=== PATIENT | female | born 1980 | race African-American/Black ===

== ENCOUNTER 2019-07-23 14:28 | Outpatient (CLI) | payer OTHER, SELFPAY ==
--- NOTE | ~2019-07-23 | XR_ITS ---
XR cervical spine 4-5V 07/23/2019 14:49 Indication: Neck pain Procedure: 4 view cervical spine Comparison: No prior studies for comparison. Findings: There is reversal of cervical lordosis, possibly due to muscle spasm or patient positioning . No prevertebral soft tissue abnormality. Vertebral body and disc heights are preserved. No fracture or traumatic malalignment. No evidence for listhesis. Impression: 1: No significant abnormality of the cervical spine. Reviewed, dictated and finalized at location A. Impression: 1: No significant abnormality of the cervical spine.
--- NOTE | ~2019-07-23 | XR_ITS ---
XR lumbar spine 2-3V 07/23/2019 14:49 Indication: Numbness. Back pain. Procedure: 3 views lumbar spine Comparison: No prior studies for comparison. Findings: Vertebral body heights are maintained. No significant disc narrowing. No evidence for spond ylolisthesis. Pedicles intact. Sacral foramen are symmetric. There are tubal ligation clips in the pe lvis. Impression: 1: No significant abnormality of the lumbar spine. Reviewed, dictated and finalized at location A. Impression: 1: No significant abnormality of the lumbar spine.
== END 2019-07-23 14:29 | disposition home or self-care (01) ==
PROVIDERS: PCP Internal Medicine Gastroenterology; Visit Provider Internal Medicine Gastroenterology
DX: R20.0 Anesthesia of skin (principal)
CPT/HCPCS: 72050; 72100

== ENCOUNTER 2020-08-13 07:46 | Emergency (ER) | payer OTHER, SELFPAY ==
[2020-08-13 07:57] VITALS: BP 122/85; PULSE 120; RESP 18; TEMP 37; O2SAT 99
[2020-08-13 08:43] LABS: Basophils Percent Auto 0.4 % (0.2-1.2); Eosinophils Absolute Auto 0.1 K/mm3 (0-0.3); Eosinophils Percent Auto 2.4 % (0-4.4); Hematocrit 47.2 % (37.0-47.0); Hemoglobin 15.1 g/dL (12.0-15.0); Immature Granulocyte Absolute 0.03 K/mm3 (0.00-0.031); Immature Granulocyte Percent A 0.5 % (0-0.5); Lymphocytes Absolute Auto 1.17 K/mm3 (0.9-3.2); Lymphocytes Percent Auto 21.2 % (18.3-44.2); Mean Corpuscular Hemoglobin 28.7 pg (26-34); Mean Corpuscular Volume 89.6 fl (80-100); Mean Platelet Volume 10.7 fl (7.4-10.4); Monocytes Absolute Auto 0.4 K/mm3 (0.1-0.6); Neutrophils Absolute Auto 3.7 K/mm3 (1.3-6.7); Neutrophils Percent Auto 67.5 % (45.5-73.1); Platelet Count Result 246 k/mm3 (150-375); Red Blood Count 5.27 M/mm3 (4.2-5.4); Red Cell Distribution Width 13.7 % (11.5-14.5); White Blood Count 5.5 K/mm3 (4.5-10.0)
[2020-08-13 08:50] LABS: Add Urine Microscopic? YES; Appearance Urine Cloudy (Clear); Bacteria Urine Trace /hpf; Bilirubin Urine Negative (Negative); Blood Urine 2+ (Negative); Color Urine Amber (Yellow); Glucose Urine UA Negative (Negative); Hyaline Casts Urine 50+ /lpf; Ketones Urine Trace mg/dL (Negative); Leukocyte Esterase Ur Negative LEU/UL (Negative); Mucus Urine Few /lpf; Nitrate Urine Negative (Negative); Protein Urine 2+ mg/dL (Negative); Specific Grav Ur 1.016 (1.001-1.035); Squamous Epithelial Cell Urine Many /hpf (Few); Urobilinogen Urine Negative mg/dL (<2.0); WBC Urine 21-30 /hpf
[2020-08-13 08:54] LABS: Alanine Aminotransferase 27 U/L (4-35); Albumin Level 4.6 g/dL (3.5-5.1); Alkaline Phosphatase 75 U/L (38-126); Anion Gap 13 mmol/L (8-16); Aspartate Amino Transferase 39 U/L (14-36); Bilirubin,Total 0.3 mg/dL (0.2-1.3); Blood Urea Nitrogen 11 mg/dL (7-17); Calcium 8.9 mg/dL (8.4-10.2); Carbon Dioxide 25 mmol/L (22-30); Chloride 99 mmol/L (98-107); Estimated CRCL calculation 59 ml/min; Estimated Glomerular Filt Rate 43; Glucose 119 mg/dL (65-105); Lipase 53 U/L (23-300); Potassium 3.6 mmol/L (3.4-5.0); Sodium 137 mmol/L (137-145)
--- NOTE | 2020-08-13 09:54 | ED.GENADULT ---
HPI - General Adult General Chief complaint: Recheck/Abnormal Lab/Rx Stated complaint: high BP, headache Time Seen by Provider: 08/13/20 07:49 Source: patient Mode of arrival: ambulatory Limitations: no limitations History of Present Illness HPI narrative: 40-year-old with a history of hypertension here with complaints of headache, fluctuating blood pressure and lower abdominal pain since early this morning. She denies any nausea or vomiting. She states that it is very tender to touch in the lower abdomen. No history of fever or chills. She states that she takes Norvasc usually 5 mg a day but for the past few days she has been taking 10 mg a day. Onset (ago): day(s) (2) Location: head Radiation: non-radiation Severity: moderate Quality: dull Pain Consistency: intermittent Relieving factors: none Exacerbating factors: none Associated symptoms: denies other symptoms Related Data Home Medications Medication Instructions Recorded Confirmed amlodipine 08/13/20 azelastine INTRANASAL 08/13/20 cyclobenzaprine mg 08/13/20 fluticasone propionate INTRANASAL 08/13/20 ibuprofen 08/13/20 loratadine mg 08/13/20 olopatadine spray INTRANASAL 08/13/20 Allergies Allergy/AdvReac Type Severity Reaction Status Date / Time No Known Allergies Allergy Verified 08/13/20 08:01 Review of Systems Review of Systems: All systems reviewed & are unremarkable except as noted in HPI and below Constitutional: Constitutional: Reports no additional constitutional complaints Eyes: Eyes: Reports no additional eye complaints ENT: Reports system reviewed and no additional complaints, except as documented Cardiovascular: Cardiovascular: Reports no additional cardiovascular complaints Respiratory: Respiratory: Reports no additional respiratory complaints Gastrointestinal: Gastrointestinal: Reports as per HPI Musculoskeletal: Musculoskeletal: Reports no additional musculoskeletal complaints Neurologic: Reports system reviewed and no additional complaints, except as documented Psychiatric: Psychiatric: Reports no additional psychiatric complaints [facility] Social History Social History Gender identity (if verbalized by the patient): Female Exam Narrative: Exam Narrative: GENERAL: Well-appearing, Morbidly obese , and in no acute distress. HEAD: Normocephalic, atraumatic. EYES: PERRLA and EOMI. ENT: Nares clear, no rhinorrhea or epistaxis. Mucous membranes moist. NECK: Supple. CHEST: Clear to auscultation. No respiratory distress. HEART: Regular rate and rhythm. No murmur heard. Normal peripheral pulses. ABDOMEN: Soft, tender in the lower abdomen, nondistended, normal active bowel sounds. EXTREMITIES: Normal range of motion. No edema. SKIN: Warm, dry, no rash. NEURO: No focal deficits. Alert and oriented x3. PSYCH: Normal mood and affect. Course Course Emergency Course: I discussed lab work with the patient. Her urine is positive for WBC, hyaline casts and protein discussed with Dr. Mendoza recommended to start oral antibiotic and will follow up in the office for possible nephropathy. Meanwhile advised to continue her home medication. Vital Signs Vital signs: Vital Signs Temperature 37.0 C 08/13/20 07:57 Pulse Rate 120 H 08/13/20 07:57 Respiratory Rate 18 08/13/20 07:57 Blood Pressure 122/85 08/13/20 07:57 Pulse Oximetry 99 08/13/20 07:57 Temperature 37.0 C 08/13/20 07:57 Pulse Rate 120 H 08/13/20 07:57 Respiratory Rate 18 08/13/20 07:57 Blood Pressure 122/85 08/13/20 07:57 Pulse Oximetry 99 08/13/20 07:57 Medical Decision Making Vital Signs Vital Signs: Vital Signs Temperature 37.0 C 08/13/20 07:57 Pulse Rate 120 H 08/13/20 07:57 Respiratory Rate 18 08/13/20 07:57 Blood Pressure 122/85 08/13/20 07:57 Pulse Oximetry 99 08/13/20 07:57 Temperature 37.0 C 08/13/20 07:57 Pulse Rate 120 H 08/13/20 07:5
[2020-08-13 10:23] VITALS: BP 128/97; PULSE 104; RESP 18; O2SAT 100
== END 2020-08-13 10:24 | disposition home or self-care (01) ==
PROVIDERS: Emergency Provider Family Medicine; PCP Internal Medicine Gastroenterology
DX: N39.0 Urinary tract infection, site not specified (principal); I10 Essential (primary) hypertension; N28.9 Disorder of kidney and ureter, unspecified
CPT/HCPCS: 36415; 80053; 81001; 81025; 83690; 85025; 87086; 87088; 99283

== ENCOUNTER 2020-09-16 13:09 | Outpatient (CLI) | payer OTHER, SELFPAY ==
[2020-09-16 14:13] LABS: Creatinine Urine 51.8 mg/dL; Total Protein Urine Random 13 mg/dL; Ur Ttl Prot Creatinine Ratio 0.25 mg/mg (0-0.20)
[2020-09-16 14:21] LABS: Albumin Level 4.1 g/dL (3.5-5.1); Anion Gap 11 mmol/L (8-16); Blood Urea Nitrogen 5 mg/dL (7-17); Calcium 8.7 mg/dL (8.4-10.2); Carbon Dioxide 20 mmol/L (22-30); Chloride 105 mmol/L (98-107); Estimated Glomerular Filt Rate > 60; Glucose 87 mg/dL (65-110); Phosphorus 2.8 mg/dL (2.5-4.5); Sodium 136 mmol/L (137-145)
== END 2020-09-16 13:10 | disposition home or self-care (01) ==
PROVIDERS: PCP Internal Medicine Gastroenterology; Visit Provider Internal Medicine Nephrology
DX: R94.4 Abnormal results of kidney function studies (principal); R80.8 Other proteinuria
CPT/HCPCS: 36415; 80069; 82570; 84156

== ENCOUNTER 2020-10-29 10:38 | Outpatient (CLI) | payer OTHER, SELFPAY ==
[2020-10-29 11:05] LABS: Creatinine Urine 78.6 mg/dL; Total Protein Urine Random 21 mg/dL; Ur Ttl Prot Creatinine Ratio 0.27 mg/mg (0-0.20)
[2020-10-29 11:12] LABS: Albumin Level 4.2 g/dL (3.5-5.1); Anion Gap 8 mmol/L (8-16); Blood Urea Nitrogen 13 mg/dL (7-17); Calcium 9.3 mg/dL (8.4-10.2); Carbon Dioxide 27 mmol/L (22-30); Chloride 102 mmol/L (98-107); Estimated Glomerular Filt Rate > 60; Glucose 97 mg/dL (65-110); Phosphorus 3.1 mg/dL (2.5-4.5); Potassium 3.3 mmol/L (3.4-5.0); Sodium 137 mmol/L (137-145)
== END 2020-10-29 10:39 | disposition home or self-care (01) ==
LOC: ANHLAB 10:40
PROVIDERS: PCP Internal Medicine Gastroenterology; Visit Provider Internal Medicine Nephrology
DX: N17.8 Other acute kidney failure (principal); R80.8 Other proteinuria
CPT/HCPCS: 36415; 80069; 82570; 84156

== ENCOUNTER 2021-03-06 14:46 | Outpatient (CLI) | payer OTHER, SELFPAY ==
[2021-03-06 15:28] LABS: Creatinine Urine > 346.5 mg/dL
[2021-03-06 15:31] LABS: Albumin Level 4.5 g/dL (3.5-5.1); Anion Gap 9 mmol/L (8-16); Blood Urea Nitrogen 11 mg/dL (7-17); Calcium 9.2 mg/dL (8.4-10.2); Carbon Dioxide 22 mmol/L (22-30); Chloride 106 mmol/L (98-107); Estimated Glomerular Filt Rate > 60; Glucose 105 mg/dL (65-110); Phosphorus 2.1 mg/dL (2.5-4.5); Potassium 4.1 mmol/L (3.4-5.0); Sodium 137 mmol/L (137-145)
[2021-03-06 15:37] LABS: Complement C3 161 mg/dL (88-165)
[2021-03-06 15:53] LABS: Total Protein Urine Random < 5 mg/dL
[2021-03-06 16:21] LABS: Eosinophil Urine None Seen % (None Seen)
[2021-03-09 10:00] LABS: Anti Glomerular Basement Memb <1.0 AI (<1.0)
[2021-03-09 17:44] LABS: Albumin 4.1 g/dL (3.8-4.8); Alpha 1 Globulin 0.3 g/dL (0.2-0.3); Beta 1 Globulin 0.4 g/dL (0.4-0.6); Gamma Globulin 1.1 g/dL (0.8-1.7); Protein, Total 7.4 g/dL (6.1-8.1)
[2021-03-10 22:17] LABS: Creatinine, Random Urine 313 mg/dL (20-275); Total Protein/Creatinine Ratio 58 mg/g creat (21-161)
[2021-03-11 11:28] LABS: ANCA Screen Negative (Negative)
== END 2021-03-06 14:47 | disposition home or self-care (01) ==
PROVIDERS: PCP Internal Medicine Gastroenterology; Visit Provider Internal Medicine Nephrology
DX: R80.8 Other proteinuria (principal)
CPT/HCPCS: 36415; 80069; 82570; 83520; 84155; 84156; 84165; 84166; 85999; 86036; 86038; 86039; 86160; 86225

== ENCOUNTER 2021-03-09 10:53 | Outpatient (CLI) | payer OTHER, SELFPAY ==
--- NOTE | ~2021-03-09 | US_ITS ---
EXAMINATION: US renal BI EXAM DATE: 03/09/2021 11:19 INDICATION: Proteinuria. TECHNIQUE: Multiple grayscale and Doppler images of the kidneys were obtained (by a technologist who performed the scan) and subsequently reviewed. There is no prior study for comparison. FINDINGS: Right kidney: There is normal contour and echogenicity. It measures 9.6 x 5.3 x 5.2 centimeters. Th ere are no focal renal lesions identified. There is no hydronephrosis. Left kidney: There is normal contour and echogenicity. It measures 10.5 x 4.5 x 5.6 centimeters. Th ere are no focal renal lesions identified. There is no hydronephrosis. Letter undistended, unremarkable. IMPRESSION: 1. Sonographically unremarkable kidneys. Reviewed, dictated and finalized at location A. 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
== END 2021-03-09 10:54 | disposition home or self-care (01) ==
LOC: ANHIMG 10:57
PROVIDERS: PCP Internal Medicine Gastroenterology; Visit Provider Internal Medicine Nephrology
DX: R80.8 Other proteinuria (principal)
CPT/HCPCS: 76775

== ENCOUNTER 2021-09-28 11:10 | Outpatient (CLI) | payer OTHER, SELFPAY ==
[2021-09-28 11:44] LABS: Creatinine Urine 33.6 mg/dL; Total Protein Urine Random 14 mg/dL; Ur Ttl Prot Creatinine Ratio 0.42 mg/mg (0-0.20)
== END 2021-09-28 11:11 | disposition home or self-care (01) ==
LOC: ANHLAB 11:13
PROVIDERS: PCP Internal Medicine Gastroenterology; Visit Provider Internal Medicine Nephrology
DX: R80.8 Other proteinuria (principal)
CPT/HCPCS: 36415; 80069; 82570; 84156

== ENCOUNTER 2021-10-02 14:07 | Outpatient (CLI) | payer OTHER, SELFPAY ==
[2021-10-02 14:48] LABS: Anion Gap 6 mmol/L (8-16); Blood Urea Nitrogen 8 mg/dL (7-17); Calcium 8.1 mg/dL (8.4-10.2); Carbon Dioxide 28 mmol/L (22-30); Chloride 102 mmol/L (98-107); Estimated Glomerular Filt Rate > 60; Glucose 100 mg/dL (65-110); Phosphorus 2.4 mg/dL (2.5-4.5); Potassium 3.6 mmol/L (3.4-5.0); Sodium 136 mmol/L (137-145)
== END 2021-10-02 14:08 | disposition home or self-care (01) ==
LOC: ANHLAB 14:10
PROVIDERS: PCP Internal Medicine Gastroenterology; Visit Provider Internal Medicine Nephrology
DX: R80.8 Other proteinuria (principal)
CPT/HCPCS: 36415; 80069

== ENCOUNTER 2022-04-05 14:55 | Outpatient (CLI) | payer OTHER, SELFPAY ==
[2022-04-05 15:33] LABS: Albumin Level 4.3 g/dL (3.5-5.1); Anion Gap 6 mmol/L (8-16); Blood Urea Nitrogen 9 mg/dL (7-17); Calcium 8.4 mg/dL (8.4-10.2); Carbon Dioxide 29 mmol/L (22-30); Chloride 105 mmol/L (98-107); Estimated Glomerular Filt Rate > 60; Glucose 85 mg/dL (65-110); Phosphorus 2.7 mg/dL (2.5-4.5); Potassium 3.4 mmol/L (3.4-5.0); Sodium 140 mmol/L (137-145)
[2022-04-05 18:42] LABS: Total Protein Urine Random 15 mg/dL
[2022-04-05 19:13] LABS: Creatinine Urine 338.3 mg/dL; Ur Ttl Prot Creatinine Ratio 0.04 mg/mg (0-0.20)
== END 2022-04-05 14:56 | disposition home or self-care (01) ==
PROVIDERS: PCP Internal Medicine Gastroenterology; Visit Provider Internal Medicine Nephrology
DX: R80.9 Proteinuria, unspecified (principal)
CPT/HCPCS: 36415; 80069; 82570; 84156

== ENCOUNTER 2022-09-29 11:27 | Outpatient (CLI) | payer OTHER, SELFPAY ==
[2022-09-29 12:13] LABS: Albumin Level 4.2 g/dL (3.5-5.1); Anion Gap 8 mmol/L (8-16); Blood Urea Nitrogen 10 mg/dL (7-17); Calcium 8.6 mg/dL (8.4-10.2); Carbon Dioxide 27 mmol/L (22-30); Chloride 102 mmol/L (98-107); Estimated Glomerular Filt Rate > 60; Glucose 102 mg/dL (65-110); Potassium 3.5 mmol/L (3.4-5.0); Sodium 137 mmol/L (137-145)
[2022-09-29 13:18] LABS: Creatinine Urine 46.1 mg/dL; Total Protein Urine Random 14 mg/dL
== END 2022-09-29 11:28 | disposition home or self-care (01) ==
LOC: ANHLAB 11:28
PROVIDERS: PCP Internal Medicine Gastroenterology; Visit Provider Internal Medicine Nephrology
DX: R80.9 Proteinuria, unspecified (principal); I10 Essential (primary) hypertension
CPT/HCPCS: 36415; 80069; 82570; 84156

== ENCOUNTER 2023-03-25 12:45 | Outpatient (CLI) | payer OTHER, SELFPAY ==
[2023-03-25 13:21] LABS: Creatinine Urine 24.8 mg/dL; Total Protein Urine Random 14 mg/dL; Ur Ttl Prot Creatinine Ratio 0.56 mg/mg (0-0.20)
[2023-03-25 13:32] LABS: Albumin Level 3.9 g/dL (3.5-5.1); Anion Gap 7 mmol/L (8-16); Blood Urea Nitrogen 8 mg/dL (7-17); Calcium 8.5 mg/dL (8.4-10.2); Carbon Dioxide 23 mmol/L (22-30); Chloride 105 mmol/L (98-107); Estimated Glomerular Filt Rate > 60; Glucose 129 mg/dL (65-110); Phosphorus 1.6 mg/dL (2.5-4.5); Potassium 3.6 mmol/L (3.4-5.0); Sodium 135 mmol/L (137-145)
== END 2023-03-25 12:46 | disposition home or self-care (01) ==
LOC: ANHLAB 12:46
PROVIDERS: PCP Internal Medicine Gastroenterology; Visit Provider Internal Medicine Nephrology
DX: I10 Essential (primary) hypertension (principal); R80.9 Proteinuria, unspecified
CPT/HCPCS: 36415; 80069; 82570; 84156

== ENCOUNTER 2023-09-25 14:05 | Outpatient (CLI) | payer OTHER, SELFPAY ==
[2023-09-25 14:37] LABS: Albumin Level 4.4 g/dL (3.5-5.1); Anion Gap 8 mmol/L (4-12); Blood Urea Nitrogen 9 mg/dL (7-17); Calcium 8.7 mg/dL (8.4-10.2); Carbon Dioxide 27 mmol/L (22-30); Chloride 100 mmol/L (98-107); Estimated Glomerular Filt Rate > 60; Glucose 81 mg/dL (65-110); Phosphorus 2.6 mg/dL (2.5-4.5); Potassium 3.3 mmol/L (3.4-5.0); Sodium 135 mmol/L (137-145)
[2023-09-25 14:45] LABS: Creatinine Urine 82.8 mg/dL; Total Protein Urine Random 12 mg/dL; Ur Ttl Prot Creatinine Ratio 0.14 mg/mg (0-0.20)
== END 2023-09-25 14:06 | disposition home or self-care (01) ==
PROVIDERS: PCP Internal Medicine Gastroenterology; Visit Provider Internal Medicine Nephrology
DX: R80.9 Proteinuria, unspecified (principal); I10 Essential (primary) hypertension
CPT/HCPCS: 36415; 80069; 82570; 84156

== ENCOUNTER 2024-04-03 10:56 | Outpatient (CLI) | payer OTHER, SELFPAY ==
[2024-04-03 11:30] LABS: Albumin Level 4.2 g/dL (3.5-5.1); Anion Gap 8 mmol/L (4-12); Blood Urea Nitrogen 10 mg/dL (7-17); Calcium 8.8 mg/dL (8.4-10.2); Carbon Dioxide 26 mmol/L (22-30); Chloride 102 mmol/L (98-107); Estimated Glomerular Filt Rate > 60; Glucose 95 mg/dL (65-110); Phosphorus 3.1 mg/dL (2.5-4.5); Sodium 136 mmol/L (137-145)
--- OUTSIDE RECORDS SUMMARY | 2024-04-03 11:37 | XMS_ITS | Clinical Summary ---
Author Organization [facility] Address [address] [place] [address] Phone Care Team Providers Care Quarry Supervisor Dimension Stone Name Role Phone [facility], External Provider Primary Care Provider U navailable Allergies No known active allergies Medications fluticasone (FLONASE) 50 mcg/spray [place], Suspension Administer 2 Sprays in each nostril daily. Active multivitamin (DAILY-LUPE) tablet Take 1 Tablet by mouth daily. Active HYDROcodone-eric taminophen (NORCO) 5-325 mg tablet Take 1 Tablet by mouth every 4 hours as needed for Pain, Moderate or Pain, Severe. Max Daily Amount: 6 Tablets 40 Tablet 7 Active ondansetron (ZOFRAN ODT) 8 mg Tablet, Rapid Dissolve Take 1 Tablet (8 mg) by mouth every 8 hours as needed for Nausea/Emesis Dissolve tablet on top of tongue, then swallow with saliva.. 9 Tablet 2 7 Active Active Problems No known active problems Social History Tobacco Use Types Packs/Day Years Used Date Smoking Tobacco: Never Smokeless Tobacco: Never Alcohol Use Standard Drinks/Week Comments Yes 0 (1 standard drink = 0.6 oz pur e alcohol) 4-5/WK Comments Unknown Sex and Gender Information Value Date Recorded Sex Assigned at Not on file Legal Sex Female 2:02 PM CDT Gender Identity Not on file Sexual Orientation Not on file Last Filed Vital Signs Vital Sign Reading Time Taken Comments Blood Pressure 150/98 10/03/2016 8:24 PM CDT Pulse 98 10/03/2016 8:24 PM CDT Temperature 36.3 C (97.3 F) 10/03/2016 8:24 PM CDT Respiratory Rate 18 10/03/2016 6:28 PM CDT Oxygen Saturation 98% 10/03/2016 8:24 PM CDT Inhaled Oxygen Concentration - - Weight 112.6 kg (248 lb 3.2 oz) 017 10:56 AM CDT Height 165.1 cm (5' 5 ) 09/28/2016 11:4 1 AM CDT Body Mass Index 41.3 09/28/2016 11:41 AM CDT Plan of Treatment Health Maintenance Due Date Last Done Comments DTAP/TDAP/TD VACCINES (1 - Tdap) 2000 HEPATITIS B VACCINES (1 of 3 - 19+ 3-dose series) 2000 CERVICAL CANCER SCREENING 08/03/2011 BREAST CANCER SCREENING 2021 INFLUENZA VACCINE (#1) 2023 HPV VACCINES Aged Out No longer eligi ble based on patient's age to complete this topic PNEUMOCOCCAL VACCINE 0-64 YEARS Aged Out No longer eligible based on patient's age to complete this topic Medical Devices Implanted Type Area Manager Exchange Device Identifier Shelf Expiration Date Model / Serial / Lot Hemostatic Gelfoam Lg Sz [id number] - Csc - [id number] Implanted:Qty : 1 on 10/03/2016 by Johny Aquino MD at [facility] Hemostatic N/A: Face [employer]- [employer]ARM [id number] 11/24/2018 [id number] / / [id number] Advance Directives For more information, please contact: [phone] * Full Code (Latest Code Status on File) Date Activated Date Inactivated Comments 10/03/2016 11:45 AM 10/03/2016 11:06 PM Care Teams Quarry Supervisor Dimension Stone Relationship Specialty Start Date End Date [facility], External Provider [address] [place] [address] PCP - General 10/03/16
--- OUTSIDE RECORDS SUMMARY | 2024-04-03 11:37 | XMS_ITS | CONTINUITY OF CARE DOCUMENT ---
Author Name melissadakotah melissadakotah Address Unknown Organization [facility] Address [address] [address] [facility] [address] [place] [address] Phone [phone] Care Team Providers Care Psychiatric Attendant Name Role Phone Luna Parr MD Unavailable ISABEL ALCANTAR MD Unavailable [phone] ISABEL ALCANTAR MD Unavailable PROBLEMS Condition Status Date Provider Notes Family History of CVA or Stroke: active Luna Parr MD Morbid obesity active Luna Parr MD HTN essential active Butch Kyte sinusitis active Butch Kyte Venous insufficiency active Luna Parr MD Knee pain, left active Butch Kyte Snoring completed - 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 Moderate DINO active Luna Parr MD Productive cough, clear sputum completed - Luna Parr MD Hyperlipidemia active Luna Parr MD Cardiology examination active Luna lora MD ENCOUNTERS Date Type Provider Location Encounter Diag nosis - In-person encounter Office Visit Luna Parr MD [facility] Cardiology examination - In-person encounter Office Visit Luna Parr MD [facility] - In-person encounter Office Visit Luna Parr MD [facility] Productive cough, clear sputumHyperlipidemia - In-person encounter Office Visit Luna Parr MD [facility] - In-person encounter Office Visit Luna Parr MD [facility] Snoring - In-person encounter Office Visit Luna Parr MD [facility] Moderate DINO - In-person encounter Office Visit Luna Parr MD [facility] - In-person encounter Office Visit Luna Parr MD [facility] - In-person encounter Office Visit Luna Parr MD [facility] - In-person encounter Office Visit Luna Parr MD [facility] Venous insufficiency - In-person encounter Office Visit Luna Parr MD [facility] Family History of CVA or Stroke:Morbid obesityHTN essentialsinusitisVenous insufficiencyKnee pain, left VITAL SIGNS Date Observation Value Provider Body Mass Index (Ratio) 45.09 kg/m2 Daja Parr MD blood pressure, diastolic 94 mm[Hg] Maria D Sebastian blood pressure, systolic 130 mm[Hg] Sruthi Sebastian oxygen saturation, oximetry 94 % Lisette Sebastian pulse rate 106 /min Lisette Sebastian respiratory rate E&M 12 /min Lisette Sebastian weight E&M 271 [lb_av] Lisette Sebastian height E&M 65 [in_i] Lisette Sebastian blood pressure, cuff size regular Maria D Sebastian Body Mass Index (Ratio) 48.92 kg/m2 Irvin Love blood pressure, diastolic -1 mm[Hg] Li nkLogic blood pressure, systolic 136 mm[Hg] Lexus kLogic pulse rate 91 /min Eliezer y blood pressure, diastolic 90 mm[Hg] Ja rret blood pressure, systolic 136 mm[Hg] Jar ret blood pressure, cuff size large Ja rret oxygen saturation, oximetry 99 % Eliezer respiratory rate E&M 16 /min Eliezer weight E&M 294 [lb_av] Eliezer y height E&M 65 [in_i] Eliezer y Body Mass Index (Ratio) 49.25 kg/m2 Daja Parr MD blood pressure, diastolic 98 mm[Hg] Li nkLogic blood pressure, systolic 135 mm[Hg] Lexus kLogic blood pressure, cuff size regular Fa [facility] blood pressure, diastolic 98 mm[Hg] Fa [facility] blood pressure, systolic 135 mm[Hg] Marcelo [facility] pulse rate 98 /min [facility] oxygen saturation, oximetry 100 % [facility] respiratory rate E&M 16 /min Rosie felton weight E&M 296 [lb_av] Rosie Pam[place]in height E&M 65 [in_i] [facility] Body Mass Index (Ratio) 47.75 kg/m2 Daja Parr MD blood pressure, diastolic 72 mm[Hg] Li nkLogic blood pressure, systolic 129 mm[Hg] Lexus kLogic blood pressure, diastolic 72 mm[Hg] Li nkLogic blood pressure, systolic 129 mm[Hg] Lexus kLogic blood pressure, diastolic 72 mm[Hg] Sean Nuñez blood pressure, systolic 129 mm[Hg] She sina Nuñez weight E&M 287 [lb_av] Xiomy Nuñez pulse rate 91 /min Xiomy Nuñez respiratory rate E&M 20 /min Xiomy Nuñez oxygen saturation, oximetry 99 % Xiomy Nuñez blood pressure, cuff size regular Sean Nuñez height E&M 65 [in_i] Xiomy Nuñez Body Mass Index (Ratio) 47.42 kg/m2 Daja Parr MD blood pressure, diastolic 96 mm[Hg] [facility], systolic 146 mm[Hg] Lexus [facility] blood pressure, diastolic 96 mm[Hg] Ak sabine Villaseñor blood pressure, systolic 146 mm[Hg] [facility] rukhsanaazalia Villaseñor oxygen saturation, oximetry 95 % Mikayla Villaseñor pulse rate 101 /min Mikayla street weight E&M 285 [lb_av] Mikayla street respiratory rate E&M 16 /min Staci Villaseñor blood pressure, cuff size large Ak sabine Villaseñor height E&M 65 [in_i] Mikayla street blood pressure, diastolic 100 mm[Hg] Corrina nkLoggrant blood pressure, systolic 147 mm[Hg] Lexus [facility] Body Mass Index (Ratio) 47.42 kg/m2 Daja Parr MD oxygen saturation, oximetry 98 % Yumiko Ordoñez blood pressure, diastolic 100 mm[Hg] St debbie Ordoñez blood pressure, systolic 147 mm[Hg] Ene Ordoñez pulse rate 95 /min Yumiko Ordoñez weight E&M 285 [lb_av] Yumiko Ordoñez respiratory rate E&M 18 /min Yumiko Audra mckinley height E&M 65 [in_i] Yumiko Ordoñez Body Mass Index (Ratio) 48.09 kg/m2 Daja Parr MD pulse rate 94 /min Martha Ahn respiratory rate E&M 18 /min Darwin Ahn blood pressure, cuff size large La michael Ahn blood pressure, diastolic 102 mm[Hg] Dolores Ahn blood pressure, systolic 138 mm[Hg] Manjinder Ahn oxygen saturation, oximetry 99 % Martha Ahn weight E&M 289 [lb_av] Martha Ahn height E&M 65 [in_i] Martha Ahn Body Mass Index (Ratio) 48.59 kg/m2 Daja Parr MD blood pressure, cuff size large Dolores Jones blood pressure, diastolic 95 mm[Hg] Dolores Jones blood pressure, systolic 137 mm[Hg] Saida Jones oxygen saturation, oximetry 99 % Saidarosanitzatevin Jones respiratory rate E&M 18 /min June kia Robert pulse rate 91 /min Magalis montgomery weight E&M 292 [lb_av] Magalis montgomery height E&M 65 [in_i] Magalis montgomery Body Mass Index (Ratio) 50.75 kg/m2 Daja Parr MD blood pressure, cuff size regular Richard Pearson blood pressure, diastolic 80 mm[Hg] Richard isgill Pearson blood pressure, systolic 118 mm[Hg] Kev Pearson respiratory rate E&M 19 /min Cindy Pearson pulse rate 101 /min Cindy Pearson oxygen saturation, oximetry 98 % Cindy Pearson weight E&M 305 [lb_av] Cindy Pearson height E&M 65 [in_i] Cindy Pearson Body Mass Index (Ratio) 48.09 kg/m2 Roland will Talia blood pressure, cuff size large Ke valeriei [facility]fbar[facility] hospital[facility] blood pressure, diastolic 74 mm[Hg] Az rri Waleuetoanbarre city hospitaler blood pressure, systolic 120 mm[Hg] Piero ri Timocarolynbarre city hospitalnitza oxygen saturation, oximetry 98 % Yumi Echevarriagabbycarolynzamzam respiratory rate E&M 18 /min Yumi Tim mosley pulse rate 104 /min Yumi Carr formerly named [facility] weight E&M 289 [lb_av] Yumi Hodgese formerly named [facility] height E&M 65 [in_i] Yumi Carr formerly named [facility] Body Mass Index (Ratio) 48.59 kg/m2 Roland Melgar blood pressure, resting Yes Sarit aziza Painter blood pressure, diastolic 97 mm[Hg] Cy steven Painter blood pressure, systolic 132 mm[Hg] Sari jaecyndie Painter blood pressure, cuff size regular Cy patriacyndie Painter pulse rate 99 /min Holley Adrianbel l oxygen saturation, oximetry 99 % Holley Painter respiratory rate E&M 16 /min Holley Painter height E&M 65 [in_i] Holley Nguyễnbel l weight E&M 292 [lb_av] Holley Campbel l ALLERGIES Allergy Name Onset Date Reaction Criticality Status BEE STINGS Low Criticality active HISTORY OF MEDICATION USE Medication Status Instructions Dates Provider Indications Com ments simvastatin 20 mg tablet active TAKE 1 TABLET BY MOUTH EVERY DAY IN THE EVENING Luna Parr MD Mucinex 600 mg tablet extended release 12hr active twice a day Renata Silva NP olopatadine 0.6% spray,non-aerosol active Renata Silva NP ibuprofen 800 mg tablet active Take as needed meloxicam 15 mg tablet completed - 08/27 Eliezer Ozempic 0.25 mg or 0.5 mg(2 mg/1.5 mL) pen injector completed Inject 1/4 mg subcutaneously once a week Take 0.25mg once a week x4 weeks then increase to 0.5mg weekly 04/10 - 08/16 Renata Silva NP vit C-vit Y-Rq-Km-lutein-ze ax 250 mg-200 unit-12.5 mg-1 mg tablet completed - 08/16 Renata Silva NP zinc gluconate 100 mg tablet completed Take 1 tablet once a day - 08/16 Renata Silva NP cyclobenzaprine 10 mg tablet active Take 1 tablet by mouth twice a day as needed 07/26 Cindy Pearson Morbid obesity #60, 30 days supply, Prescribed by ISABEL ALCANTAR, Filled 07/26/2020 olopatadine 0.6% spray,non-aerosol completed 08/02 - 08/16 Renata Silva NP #30.5, 30 days supply, Prescribed by CORBIN HERNANDEZ, Filled 2020 fluticasone propionate 50 mcg/actuation spray,suspension active as needed 08/02 Cindy Pearson #16, 30 days supply, Prescribed by CORBIN HERNANDEZ, Filled 2020 meloxicam 15 mg tablet completed once a day 03/29 - 04/05 Magalis Jones EpiPen 2-Grant 0.3 mg/0.3 mL auto-injector active Take as needed 03/08 Holley Painter Probiotic (with Vitamin D3) 2 billion cell- 5 mcg tablet,chewable active Take 1 tablet once a day 03/08 Holley Painter apple cider vinegar 500 mg tablet completed Take 1 tablet once a day 03/08 - 04/05 Holley Painter RA TURMERIC CAPSULE completed Take 1 capsule once a day 03/08 - 08/16 Renata Silva NP vitamin E 670 mg (1,000 unit) capsule completed Take 1 capsule once a day 03/08 - 08/16 Renata Silva NP biotin 10 mg tablet completed Take 1 tablet once a day 03/08 - 08/16 Renata Silva NP One-Per-Day Orondo-3 684-1,200 mg capsule,delayed release(/EC) completed Take 1 capsule once a day 03/08 - 08/16 Renata Silva NP Oysco 500/D 500 mg-5 mcg (200 unit) tablet completed Take 1 tablet once a day 03/08 - 08/16 Renata Silva NP BLACK ELDERBERRY completed Take 1 capsule once a day 03/08 - 08/16 Renata Silva NP amlodipine 5 mg tablet active Take 1 tablet once a day 03/08 Holley Painter CYCLOBENZAPRINE HCL 10 MG ORAL TABLET completed take 1 tab twice aday 03/08 - 04/02 Yumi Quiñonez Allergy Relief-D (loratadine) 5-120 mg tablet extended release 12 hr active Take 1 tablet once a day 03/08 Holley Painter fluticasone propion-salmetero l 100-50 mcg/dose blister with device completed Use 2 spray twice a day 03/08 - 08/16 Renata Silva NP IBUPROFEN 800 MG ORAL TABLET completed take 1 tab three times daily 03/08 - 04/02 Yumi Quiñonez azelastine 137 mcg (0.1 %) aerosol,spray active 2 spray into both nostrils once a day 03/08 Holley Painter SOCIAL HISTORY Date Observation Value Provider smoking status Never smoker Luna lora MD smoking status Never smoker Luna lora MD smoking status Never smoker Rosie Watkins smoking status Never smoker Xiomy Nuñez social history E&M S moking History: P reji has never smoked. Gabby NOGUERA social history reviewed E&M revi ewed - no changes required Gabby WOODSP Exercise counseling yes Mikayla Kasi smoking status Never smoker Mikayla Cortez lona social history E&M S moking History: P reji has never smoked. Luna Parr MD social history reviewed E&M revi ewed - no changes required Luna Parr MD Exercise counseling yes Yumiko Meek smoking status Never smoker Yumiko Ordoñez social history E&M S moking History: Sandro mendoza has never smoked. Luna Parr MD social history reviewed E&M revi ewed - no changes required Luna Parr MD Exercise counseling yes Martha Ahn smoking status Never smoker Martha yanez social history E&M S moking History: Sandro mendoza has never smoked. Luna Parr MD smoking status Never smoker Luna lora MD social history reviewed E&M revi ewed - no changes required Luna Parr MD Exercise counseling yes Tobi Jones smoking status Never smoker Luna lora MD social history reviewed E&M revi ewed - no changes required Luna Parr MD number of grandchildren Luna Parr MD social history E&M S moking History: Sandro mendoza has never smoked. Luna Parr MD social history reviewed E&M revi ewed - no changes required Luna Parr MD smoking status Never smoker Yumi escobar social history E&M S moking History: Sandro mendoza has never smoked. Luna Parr MD social history reviewed E&M revi ewed - no changes required Luna Parr MD smoking status Never smoker Holley Sushila lazaro FAMILY HISTORY Family Member Condition Paternal Grandmother Family History of C VA or Stroke: Paternal Grandfather Family History of C VA or Stroke: Maternal Grandfather Family History of C VA or Stroke: Full Sister Family History of CV A or Stroke: Father Family History of Hy pertension: Father Family History of Di abetes: INSURANCE PROVIDERS Payer name Policy type / Coverage type Lauri red constitution party ID CIG[employer]\[facility] [employer] [id number] ADVANCE DIRECTIVES Name Date DISCUSSED - NO DECISION MADE TREATMENT PLAN Date Name Performer [id number],C,o zempic is not covered by insurance. encouraged to increase protein intake, water intake, cut down on portion sizes. increase exercise Renata Silva NP [id number],C, B P today: 129/72 P rior BP: 146/96 (05/17/2022) Her updated medication list for this problem includes: Amlodipine 5 Mg Tablet (Amlodipine) ..... Take 1 tablet once a day Renata Silva NP [id number],C,f airly complaint with cpap. has been having persistent cough since starting cpap Renata Silva NP [id number],C,r eports that has been persistent since 2weeks after starting cpap. pt has been taking mucinex. will check cxr Renata Silva NP [id number],C, D enies leg swelling. Continues to wear compression hose and elevate her feet. 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 Titration study was done. Will order CPAP based on recommendations. Gabby Giang [facility] [id number],C, B P elevated today but was better controlled at home this AM. Advised reduced sodium intake and routine monitoring of the blood pressure. We aim for less than 130/80. Gabby Giang [facility] [id number],C, W eight loss advised. Insurance did not cover ozempic for her. Gabby Giang [facility] [id number],C, W eight loss advised. W ill start her on Ozempic for weigh tloss Luna Parr MD [id number],C,B P elevated today at 147/100, but improved from last visit . Advised reduced sodium intake and routine monitoring of the blood pressure. We aim for less than 130/80. Luna Parr MD [id number],S, D enies leg swelling. Continues to wear compression hose and elevate her feet. Luna Parr MD [id number],C, W ill arrange a titration study. aDvised continued weight loss Luna Parr MD [id number],S, C ontinues to experience occasional knee pain. Has followed with the business operations specialist and wears a knee brace as needed. Luna Parr MD [id number],S, B lood pressure is mildly elevated. She reports it's usually better controlled at home. Continues on Amlodipine. Advised routine home BP monitoring and dietary sodium restriction. Luna Parr MD [id number],S, D enies leg swelling. Continues to wear compression hose and elevate her feet. Luna Parr MD [id number],S, W eight loss advised. Luna Parr MD [id number],S, C ontinues to experience occasional knee pain. Has followed with the business operations specialist and wears a knee brace as needed. Luna Parr MD [id number],S, O ccasional intermittent swelling of the legs bilaterally. Elevation and compression provide some relief. Luna Parr MD [id number],S, W eight loss advised. Luna Parr MD [id number],W, B lood pressure is mildly elevated at 137/95. Continues on Amlodipine. Advised routine home BP monitoring and dietary sodium restriction. Luna Parr MD Cardiology:has lost 23 lbs since last visit; continued weight loss encouraged remains active at work Luna Parr MD Cardiology: H er updated medication list for this problem includes: Simvastatin 20 Mg Tablet (Simvastatin) ..... Take 1 tablet by mouth every day in the evening Luna Parr MD Cardiology: D enies leg swelling. Continues to wear compression socks Luna Parr MD Cardiology:continue to check at home B P today: 130/94 P rior BP: 136/-1 (08/28/2023) Her updated medication list for this problem includes: Amlodipine 5 Mg Tablet (Amlodipine) ..... Take 1 tablet once a day Luna Parr MD Cardiology:knee pain is resolved Luna Parr MD Cardiology: W eight loss advised. Previously discussed ozempic but not covered by insurance Luna Parr MD Cardiology: D enies leg swelling. Continues to wear compression socks and elevates feet Luna Parr MD Cardiology: T he patient is using CPAP on a regular basis. The patient has been benefiting from therapy and should continue use. Luna Parr MD Cardiology: C ontinues simvastatin. Continue to monitor and aim for LDL less than 70 Luna Parr MD Cardiology: B lood pressure control is reasonably satisfactory. Luna Parr MD Cardiology:Recently started on statin by PCP. Continue to monitor and aim for LDL less than 70 Her updated medication list for this problem includes: Simvastatin 20 Mg Tablet (Simvastatin) ..... Take 1 tablet by mouth every day in the evening Luna Parr MD Cardiology:Blood pre ssure control is satisfactory. BP today: 135/98 P rior BP: 129/72 (08/16/2022) Her updated medication list for this problem includes: Amlodipine 5 Mg Tablet (Amlodipine) ..... Take 1 tablet once a day Luna Parr MD Cardiology:Denies le g swelling. Continues to wear compression socks and elevates feet Luna Parr MD Cardiology:The patie nt is using CPAP on a regular basis. The patient has been benefiting from therapy and should continue use. With cpap more energized in morning but wakes up several times throughout the night to take care of her family Luna Parr MD Cardiology:Weight lo ss advised. Previously discussed ozempic but not covered by insurance Luna Parr MD Cardiology:ozempic i s not covered by insurance. encouraged to increase protein intake, water intake, cut down on portion sizes. increase exercise Renata Silva NP Cardiology: B P today: 129/72 P rior BP: 146/96 (05/17/2022) Her updated medication list for this problem includes: Amlodipine 5 Mg Tablet (Amlodipine) ..... Take 1 tablet once a day Renata Silva NP Cardiology:fairly co mplaint with cpap. has been having persistent cough since starting cpap Renata Silva NP Cardiology:reports t hat has been persistent since 2weeks after starting cpap. pt has been taking mucinex. will check cxr Renata Silva NP Cardiology: D enies leg swelling. Continues to wear compression hose and elevate her feet. Gabby NOGUERA Cardiology: M oderate DINO on home sleep study. Titration study was done. Will order CPAP based on recommendations. Gabby NOGUERA Cardiology: B P elevated today but was better controlled at home this AM. Advised reduced sodium intake and routine monitoring of the blood pressure. We aim for less than 130/80. Gabby Giang [facility] Cardiology: W eight loss advised. Insurance did not cover ozempic for her. Gabby Giang [facility] Cardiology: W eight loss advised. W ill start her on Ozempic for weigh tloss Luna Parr MD Cardiology:BP elevat ed today at 147/100, but improved from last visit . Advised reduced sodium intake and routine monitoring of the blood pressure. We aim for less than 130/80. Luna Parr MD Cardiology: D enies leg swelling. Continues to wear compression hose and elevate her feet. Luna Parr MD Cardiology: W ill arrange a titration study. aDvised continued weight loss Luna Parr MD Cardiology: C ontinues to experience occasional knee pain. Has followed with the business operations specialist and wears a knee brace as needed. Luna Parr MD Cardiology: B lood pressure is mildly elevated. She reports it's usually better controlled at home. Continues on Amlodipine. Advised routine home BP monitoring and dietary sodium restriction. Luna Parr MD Cardiology: D enies leg swelling. Continues to wear compression hose and elevate her feet. Luna Parr MD Cardiology: W eight loss advised. Luna Parr MD Cardiology: C ontinues to experience occasional knee pain. Has followed with the business operations specialist and wears a knee brace as needed. Luna Parr MD Cardiology: O ccasional intermittent swelling of the legs bilaterally. Elevation and compression provide some relief. Luna Parr MD Cardiology: W eight loss advised. Luna Parr MD Cardiology: B lood pressure is mildly elevated at 137/95. Continues on Amlodipine. Advised routine home BP monitoring and dietary sodium restriction. Luna Parr MD Cardiology:Weight loss advised. Luna Parr MD Cardiology:Blood pre ssure control is satisfactory. Continues on Amlodipine. Luna Parr MD Cardiology:Occasiona l intermittent swelling of the legs bilaterally. Elevation and compression provide some relief. Luna Parr MD Cardiology:Continues to experience occasional knee pain. Has followed with the business operations specialist and wears a knee brace as needed. Luna Parr MD Cardiology Follow up :Has gained a significant amount of weight since the of her sister. Weight loss advised. [facility] Cardiology Follow up:Follows karley cub[place]. [facility] Cardiology Follow up :Recommend compression stockings of 20-30mmHg. [facility] Cardiology Follow up :Blood pressure control is satisfactory. Advised reduced sodium intake and routine monitoring of the blood pressure. We aim for less than 130/80. Echo with normal LV size and systolic function and no wall motion abnormality. The patient has been reassured. [facility] Cardiology New Patie nt :Has gained a significant amount of weight since the of her sister. Weight loss advised. [facility] Cardiology New Patient :Follows orthopedics. [facility] Cardiology New Patie nt :? Venous insufficiency. Will arrange venous doppler with reflux. If there is insufficiency, she would benefit from compression stockings of 20-30mm Hg. [facility] Cardiology New Patie nt :Blood pressure elevated at 132/97. Advised reduced sodium intake and routine monitoring of the blood pressure. We aim for less than 130/80. No changes to antihypertensives made. Will check echo to evaluate LV size and systolic function. Butch Melgar Date Name CXR- PA/Lat Sleep Study Titratio n Sleep Study Home Venous Doppler Bilat eral LE - Reflux Complete Echo HISTORY OF PROCEDURES Procedure Date Procedure Name Provider Procedure Notes S tatus Complex e/m visit add on Luna Parr MD completed EKG Luna Parr MD complet ed Complex e/m visit add on Luna Parr MD completed EKG Luna Parr MD complet ed Schedule Followup Luna Parr MD 6 months completed EKG Luna Parr MD complet ed EKG Luna Parr MD complet ed EKG Luna Parr MD complet ed EKG Luna Parr MD complet ed EKG Luna Parr MD complet ed EKG Luna Parr MD complet ed EKG Luna Parr MD complet ed EKG Luna Parr MD complet ed
--- OUTSIDE RECORDS SUMMARY | 2024-04-03 11:37 | XMS_ITS | Clinical Summary ---
Author Organization [facility] Address [address] [place] [phone] Phone Care Team Providers Care Director Of Sustainability Programs Name Role Phone Stewart Diggs MD Primary Care Provider [phone] Allergies No known active allergies Medications Medication Sig Dispensed Refills Start Date End Date Status amLODIPine (NORVASC) 5 MG tablet 09/19/2020 Active azelastine (ASTELIN) 0.1 % nasal spray Administer 2 sprays into each nostril 2 (two) times a day 08/19/2020 Active cyclobenzaprine (FLEXERIL) 10 MG tablet Take 10 mg by mouth 2 (two) times a day if needed 07/26/2020 Active EPINEPHrine (EPIPEN) 0.3 MG/0.3ML injection syringe Inject 0.3 mg into the shoulder, thigh, or buttocks 01/01/2020 Active fluticasone (FLONASE) 50 MCG/ACT nasal spray SHAKE LIQUID AND USE 1 SPRAY IN EACH NOSTRIL TWICE DAILY 08/31/2020 Active ibuprofen (ADVIL) 800 MG tablet Take 800 mg by mouth 3 (three) times a day with meals 08/24/2020 Active loratadine (CLARITIN) 10 MG tablet Take 10 mg by mouth 1 (one) time each day 09/15/2020 Active olopatadine (PATANASE) 0.6 % solution nasal spray 2 sprays 2 (two) times a day 08/31/2020 Active Zinc Gluconate 100 MG tablet zinc gluconate 100 mg tablet 02/24/1969 Active meloxicam (MOBIC) 15 MG tablet Take 15 mg by mouth 1 (one) time each day with food 07/21/2021 Active Active Problems Problem Noted Date Diagnosed Date Snoring 2021 Essential (primary) hypertension 01/06/2020 Family history of stroke 01/06/2020 Knee pain 01/06/2020 Obesity 01/06/2020 Sinusitis 01/06/2020 Venous insufficiency 01/06/2020 Allergic rhinitis 01/26/2016 Family History Medical History Relation Comments Diabetes mellitus Father Hypertension Father Relation Status Comments Father Social History Tobacco Use Types Packs/Day Years Used Date Smoking Tobacco: Former Smokeless Tobacco: Never Alcohol Use Standard Drinks/Week Comments Not Currently 0 (1 standard drink = 0.6 oz pur e alcohol) Sex and Gender Information Value Date Recorded Sex Assigned at Not on file Gender Identity Not on file Sexual Orientation Not on file Last Filed Vital Signs Vital Sign Reading Time Taken Comments Blood Pressure 134/72 10/04/2021 9:26 AM CDT Pulse - - Temperature 35.6 C (96.1 F) 10/04/2021 9:26 AM CDT Respiratory Rate 18 10/04/2021 9:26 AM CDT Oxygen Saturation - - Inhaled Oxygen Concentration - - Weight 131 kg (288 lb) 10/04/2021 9:26 AM CDT Height 165.1 cm (5' 5 ) 10/04/2021 9:26 AM CDT Body Mass Index 47.93 10/04/2021 9:26 AM CDT Plan of Treatment Health Maintenance Due Date Last Done Comments Pneumococcal PPSV23 Highest Risk Adult (1 of 3 - PCV13 ) 2000 Influenza Vaccine (#1) 2023 Care Teams Director Of Sustainability Programs Relationship Specialty Start Date End Date Stewart Diggs MD [address] [place] [phone] PCP - General Family Medicine 08/15/20
--- OUTSIDE RECORDS SUMMARY | 2024-04-03 11:37 | XMS_ITS | Clinical Summary ---
Author Organization [facility] Address [address] [place] [phone] Care Team Providers Care Upholstery Parts Sorter Name Role Phone Unavailable Primary Care Provider Unavailabl e Social History Tobacco Use Types Packs/Day Years Used Date Smoking Tobacco: Never Assessed Comments Unknown Sex and Gender Information Value Date Recorded Sex Assigned at Not on file Legal Sex Female 8:39 AM CDT Gender Identity Not on file Sexual Orientation Not on file Plan of Treatment Health Maintenance Due Date Last Done Comments Hepatitis C Virus (HCV) Screening 1981 TdaP Immunization 1981 Hepatitis B Immunization (1 of 3 - 19+ 3-dose series) 2000 Pap Smear 2002 Cervical Cancer Screening (CCS) 08/03/2011 HPV/Cotest 08/03/2011 Discussion re Starting/Frequ ency of Mammograms 2021 Influenza Immunization (#1) 2023 SARS-COV-2 Immunization ( season) 2023 Respiratory Syncytial Virus (RSV) Immunization (Adult) (1 - 1-dose 75+ series) 2056 Meningococcal Immunization (ACWY) Aged Out No longer eligible based on patient's age to complete this topic Pneumococcal Immunization Combined Aged Out No longer eligible based on patient's age to complete this topic Rotavirus Immunization Aged Out No lo nger eligible based on patient's age to complete this topic
--- OUTSIDE RECORDS SUMMARY | 2024-04-03 11:37 | XMS_ITS | Clinical Summary ---
Author Organization [facility] [employer] Address [address] [place] [address] Care Team Providers Care Hris Analyst Name Role Phone Stewart Diggs MD Primary Care Provider [phone] Source Comments [facility],non-owned Affiliates and Associated Physician Practices is amultiple site organization consisting of ambulatory clinics and hospital sitesin [place], [place], [place] and [place]. This disclosure is being madepursuant to the Care Everywhere program and may not contain all information available regarding this patient. Last updated 17.[facility] Allergies Active Allergy Reactions Criticality Noted Date Comments Bee Swelling Low 01/07/2020 Medications * Be aware that medications may not be up to date on this document. Alwaysverify current medications with the patient. Medication Sig Dispensed Refills Start Date End Date Status amLODIPine (NORVASC) 5 MG tablet amlodipine 5 mg tablet Active cyclobenzaprine (FLEXERIL) 10 MG tablet cyclobenzaprine 10 mg tablet Active ibuprofen (MOTRIN) 800 MG tablet 12/03/2019 Active meloxicam (Mobic) 15 MG tablet TAKE 1 TABLET BY MOUTH EVERY DAY WITH MEALS 08/13/2022 Active tretinoin (Retin-A) 0.05 % creamIndications: Pseudofolliculiti s barbae Pea sized amount to entire face at night. 30 days supply. 45 g 5 01/07/2024 Active spironolactone (Aldactone) 100 MG tabletIndications :Hirsutism Take 1 (one) tablet by mouth once daily 30 tablet 3 01/07/2024 Active EPINEPHrine (EPIPEN) 0.3 MG/0.3ML auto-injector penIndications:Al lergic reaction to insect sting, accidental or unintentional, subsequent encounter Inject 0.3 mL into muscle once as needed for Anaphylaxis 2 Each 02/13/2024 Active fluticasone propionate (Flonase) 50 MCG/ACT nasal sprayIndications: Nonallergic vasomotor rhinitis [place] 1 (one) spray into each nostril 2 times daily 16 g 11 02/13/2024 Active loratadine (Claritin) 10 MG tabletIndications :Nonallergic vasomotor rhinitis Take 1 (one) tablet by mouth once daily 90 tablet 11 02/13/2024 Active olopatadine (Patanase) 0.6 % nasal solutionIndicatio ns:Nonallergic vasomotor rhinitis [place] 2 (two) sprays into each nostril 2 times daily 30.5 g 11 02/13/2024 Active triamcinolone acetonide (Kenalog) 0.1 % ointmentIndicatio ns:Atopic dermatitis, unspecified type Apply to affected area 2 times daily as needed (for red itchy flares) Use for 7 days at a time. 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 Onychomycosis 01/07/2024 Obstructive sleep apnea (adult) (pediatric) 01/25 Venous insufficiency 01/06/2020 Allergic rhinitis 01/25/2016 Encounters Date Type Department Care Team Description 02/13/2024 4:00 PM NEUROLOGY STROKE PHYSICIAN Office Visit [facility] - Allergy [address] [place] [phone] Nabil Saha MD Atopic dermatitis, unspecified type (Primary Dx); Allergic reaction to insect sting, accidental or unintentional, subsequent encounter; Nonallergic vasomotor rhinitis; History of insect sting allergy 02/13/2024 Travel 01/07/2024 11:20 AM NEUROLOGY STROKE PHYSICIAN Office Visit [facility] - Dermatology [address] [place] [phone] Dede Bryan MD Pseudofolliculitis barbae (Primary Dx); Hirsutism; Rash and other nonspecific skin eruption from Last 3 Months Social History Tobacco Use Types Packs/Day Years Used Date Smoking Tobacco: Former Smokeless Tobacco: Never Tobacco Cessation:Counseling Given: Not Answered Alcohol Use Standard Drinks/Week Comments Yes 0 (1 standard drink = 0.6 oz pur e alcohol) occ PHQ-2 Answer Date Recorded Patient Health Questionnaire-2 Score 0 07/24/2023 Sex and Gender Information Value Date Recorded Sex Assigned at Not on file Gender Identity Not on file Sexual Orientation Not on file Last Filed Vital Signs Vital Sign Reading Time Taken Comments Blood Pressure 118/90 02/13/2024 3:15 PM NEUROLOGY STROKE PHYSICIAN Pulse 99 02/13/2024 3:15 PM NEUROLOGY STROKE PHYSICIAN Temperature 36.3 C (97.3 F) 02/13/2024 3:15 PM NEUROLOGY STROKE PHYSICIAN Respiratory Rate 18 02/13/2024 3:15 PM NEUROLOGY STROKE PHYSICIAN Oxygen Saturation 98% 02/13/2024 3:15 PM NEUROLOGY STROKE PHYSICIAN Inhaled Oxygen Concentration - - Weight 122.5 kg (270 lb) 02/13/2024 3:15 PM NEUROLOGY STROKE PHYSICIAN Height 162.6 cm (5' 4 ) 02/13/2024 3:15 PM NEUROLOGY STROKE PHYSICIAN Body Mass Index 46.35 02/13/2024 3:15 PM NEUROLOGY STROKE PHYSICIAN Plan of Treatment Upcoming Encounters Date Type Department Care Team (Late st Contact Info) Description 05/12/2024 8:30 AM CDT Office Visit [facility] - Dermatology [address] [place] [phone] Dede Bryan MD [address] [place] [phone] 02/12/2025 12:00 PM NEUROLOGY STROKE PHYSICIAN Office Visit [facility] - Allergy [address] [place] [phone] Nabil Saha MD [address] [place] [address] [address] DIV OF ALLERGY/[place] [address] Health Maintenance Due Date Last Done Comments LIPID TESTING 1981 PAP SMEAR 1981 HIV SCREENING 1996 HEPATITIS C SCREENING 07/29/1999 DTAP/TDAP/TD VACCINES (1 - Tdap) 2000 HEPATITIS B VACCINE (1 of 3 - 19+ 3-dose series) 2000 SCREENING FOR DIABETES 08/22/2022 COVID-19 VACCINE (1 - season) 2023 INFLUENZA VACCINE (#1) 2023 DEPRESSION SCREENING 02/26/2024 07/24/2023, 01/31/20 23 MAMMOGRAM 12/26/2025 12/27/2023, 02/2023, 08/06/2022, Additional history exists ZOSTER VACCINE (1 of 2) 08/03/2031 HIB VACCINE Aged Out No longer eligi ble based on patient's age to complete this topic HPV VACCINE Aged Out No longer eligi ble based on patient's age to complete this topic MENINGOCOCCAL (Group B) VACCINE Aged Out No longer eligible based on patient's age to complete this topic MENINGOCOCCAL VACCINE Aged Out No ye fady eligible based on patient's age to complete this topic PNEUMOCOCCAL VACCINE Aged Out No long er eligible based on patient's age to complete this topic Care Teams Hris Analyst Relationship Specialty [place] [address] [place] [phone] PCP - General Gastroenterology 01/30/23
--- OUTSIDE RECORDS SUMMARY | 2024-04-03 11:37 | XMS_ITS | Clinical Summary ---
Author Organization [place] [id number] Address [address] [place] [address] Care Team Providers Care Set Decorator Name Role Phone Stewart Diggs MD Primary Care Provider Surgical History Surgery Date Site/Laterality Comments ENDOMETRIAL ABLATION Family History Medical History Relation Name Comments Breast cancer Cousin 1 Breast cancer Cousin 2 Breast cancer Cousin 3 Breast cancer Father's Sister Relation Name Status Comments Cousin 1 Cousin 2 Cousin 3 Father's Sister Social History Tobacco Use Types Packs/Day Years Used Date Smoking Tobacco: Never Assessed Comments No Sex and Gender Information Value Date Recorded Sex Assigned at Not on file Legal Sex Female 4:34 PM MANAGER PRIMARY CARE Gender Identity Not on file Sexual Orientation Not on file Obstetrics History Para Term AB IAB SAB Ectopic Multiple Livin g Live Births 4 4 4 Date Outcome GA Total Labor Labor/2nd/3rd Weight Sex Type Anes PTL Annetta A1 A5 Name Clin Term Term Term Term Last Filed Vital Signs Vital Sign Reading Time Taken Comments Blood Pressure 151/93 03/27/2019 3:22 PM MANAGER PRIMARY CARE Pulse 104 03/27/2019 3:22 PM MANAGER PRIMARY CARE Temperature 36.6 C (97.9 F) 03/27/2019 3:22 PM MANAGER PRIMARY CARE Respiratory Rate - - Oxygen Saturation 99% 03/27/2019 3:22 PM MANAGER PRIMARY CARE Inhaled Oxygen Concentration - - Weight 129.4 kg (285 lb 4.5 oz) 03/27/2019 3:22 PM MANAGER PRIMARY CARE Height 162.6 cm (5' 4 ) 03/27/2019 3:22 PM MANAGER PRIMARY CARE Body Mass Index 48.97 03/27/2019 3:22 PM MANAGER PRIMARY CARE Plan of Treatment Health Maintenance Due Date Last Done Comments Cervical Cancer Screening 1981 Depression Screening 1981 Hepatitis C Screening 1981 DTaP/Tdap/Td Vaccine (1 - Tdap) 1992 Varicella Vaccines (1 of 2 - 13+ 2-dose series) 1994 Hepatitis B Screening 08/03/1999 Regular Well Visit/Exam 18-64 08/03/1999 Influenza Vaccine (#1) 2023 Breast Cancer Screening-Mammogram 12/26/2024 12/27/2023, 08/06/2022, 10/15/2017 HPV Vaccines Aged Out No longer eligi ble based on patient's age to complete this topic Pneumococcal vaccine <65 Aged Out No longer eligible based on patient's age to complete this topic Procedures Procedure Name Priority Date/Time Associated Diagnosis Comments SCREENING MAMMOGRAM BILATERAL W YANIRA Schedule Routine, Read Routine (OP Routine) 12/27/2023 8:07 AM CDT Encounter for screening mammogram for malignant neoplasm of breast from Last 3 Months or Most Recently Relevant to Health Maintenance Results * Screening Mammogram Bilateral W Yanira (12/27/2023 8:07 AM CDT) Anatomical Region Laterality Modality Breast Bilateral Mammography Impressions 12/27/2023 8:44 AM CDT BI-RADS ATLAS category (overall): 1 - Negative There is no mammographic evidence of malignancy. A 1 year screening mammogram is recommended. The patient has been or will be contacted. We recommend annual screening mammography for women at average risk of breast cancer beginning at age 40, based on guidelines of the [employer] (ACR Practice Parameter for the Performance of Screening and Diagnostic Mammography) and [employer]. For women with and elevated risk of breast cancer, please refer to the ACR Practice Parameter for specific screening recommendations. The patient will be entered into a reminder system with a target due date of 1 year for her next screening exam. Narrative 12/27/2023 8:44 AM CDT Screening Mammogram Bilateral W Yanira: 12/27/23 The study was acquired using full field digital technology and interpreted from soft copy. 2D digital mammographic views, as well as 3D digital tomosynthesis were performed in the CC and MLO projections. CLINICAL: Encounter for screening mammogram for malignant neoplasm of breast. No relevant medical history has been documented for this patient. History of breast cancer in Father's Sister, Cousin, Cousin, Cousin. COMPARISONS: 08/06/2022 Screening Mammogram Bilateral W Yanira 10/15/2017 Screening Mammogram Bilateral W Yanira BREAST TISSUE: There are scattered areas of fibroglandular density. FINDINGS: No suspicious masses, suspicious calcifications, or other suspicious findings are seen within either breast. There has been no suspicious change. Panda Herbert MD IMG MAMMO PROCEDURES Final R esult from Last 3 Months or Most Recently Relevant to Health Maintenance Insurance [facility] MEDICAID [facility] Care Teams Set Decorator Relationship Specialty Start Date End Date Stewart Diggs MD [address] [facility] [address] [place] [phone] PCP - General 03/27/19
--- OUTSIDE RECORDS SUMMARY | 2024-04-03 11:37 | XMS_ITS | Referral Summary ---
Author Organization [facility] Address [address] [place] [address] Care Team Providers Care Grove Superintendent Name Role Phone Stewart Diggs MD Primary Care Provider Source Comments [facility],non-owned Affiliates and Associated Physician Practices is amultiple site organization consisting of ambulatory clinics and hospital sitesin [place], [place], [place] and [place]. This disclosure is being madepursuant to the Care Everywhere program and may not contain all information available regarding this patient. Last updated 17.[facility] Encounters Date Type Department Care Team Description 02/13/2024 Travel 02/13/2024 4:00 PM MANAGER INTEL Office Visit [facility] - Allergy [address] [place] [phone] Nabil Saha MD Atopic dermatitis, unspecified type (Primary Dx); Allergic reaction to insect sting, accidental or unintentional, subsequent encounter; Nonallergic vasomotor rhinitis; History of insect sting allergy 01/07/2024 11:20 AM MANAGER INTEL Office Visit [facility] - Dermatology [address] [place] [address], [place] [phone] Dede Bryan MD Pseudofolliculitis barbae (Primary Dx); Hirsutism; Rash and other nonspecific skin eruption from Last 3 Months Allergies Active Allergy Reactions Criticality Noted Date [...] 50 MCG/ACT nasal sprayIndications: Nonallergic vasomotor rhinitis [place] 1 (one) spray into each nostril 2 times daily 16 g 11 02/13/2024 Active loratadine (Claritin) 10 MG tabletIndications :Nonallergic vasomotor rhinitis Take 1 (one) tablet by mouth once daily 90 tablet 11 02/13/2024 Active olopatadine (Patanase) 0.6 % nasal solutionIndicatio ns:Nonallergic vasomotor rhinitis [place] 2 (two) sprays into each nostril 2 [...] 01/25 Venous insufficiency 01/06/2020 Allergic rhinitis 01/25/2016 Social History Tobacco Use Types Packs/Day Years [...] Comments Blood Pressure 118/90 02/13/2024 3:15 PM MANAGER INTEL Pulse 99 02/13/2024 3:15 PM MANAGER INTEL Temperature 36.3 C (97.3 F) 02/13/2024 3:15 PM MANAGER INTEL Respiratory Rate 18 02/13/2024 3:15 PM MANAGER INTEL Oxygen Saturation 98% 02/13/2024 3:15 PM MANAGER INTEL Inhaled Oxygen Concentration - - Weight 122.5 kg (270 lb) 02/13/2024 3:15 PM MANAGER INTEL Height 162.6 cm (5' 4 ) 02/13/2024 3:15 PM MANAGER INTEL Body Mass Index 46.35 02/13/2024 3:15 PM MANAGER INTEL Plan of Treatment Upcoming Encounters Date Type Department Care Team (Late st Contact Info) Description 05/12/2024 8:30 AM CDT Office Visit [facility] - Dermatology [address] [place] [address], [place] [phone] Dede Bryan MD [address] [facility] [place] [address] 02/12/2025 12:00 PM MANAGER INTEL Office Visit [facility] - Allergy [address] [place] [address], [place] [phone] Nabil Saha MD [address] [place] [address] DIV [place] ALLERGY/[place] [address] Care Teams Grove Superintendent Relationship Specialty Start Date End Date Stewart Diggs MD [address] [place] [phone] PCP - General Gastroenterology 01/30/23
--- OUTSIDE RECORDS SUMMARY | 2024-04-03 11:37 | XMS_ITS | Referral Summary ---
Author Organization [place] [id number] [facility] Address [address] [place] [address] Care Team Providers Care Advertising Editor Name Role Phone Stewart Diggs MD Primary Care Provider Social History Tobacco Use Types Packs/Day Years Used Date Smoking Tobacco: Never Assessed Comments No Sex and Gender Information Value Date Recorded Sex Assigned at Not on file Legal Sex Female 4:34 PM CLINICAL TRIALS MANAGER Gender Identity Not on file Sexual Orientation Not on file Last Filed Vital Signs Vital Sign Reading Time Taken Comments Blood Pressure 151/93 03/27/2019 3:22 PM CLINICAL TRIALS MANAGER Pulse 104 03/27/2019 3:22 PM CLINICAL TRIALS MANAGER Temperature 36.6 C (97.9 F) 03/27/2019 3:22 PM CLINICAL TRIALS MANAGER Respiratory Rate - - Oxygen Saturation 99% 03/27/2019 3:22 PM CLINICAL TRIALS MANAGER Inhaled Oxygen Concentration - - Weight 129.4 kg (285 lb 4.5 oz) 03/27/2019 3:22 PM CLINICAL TRIALS MANAGER Height 162.6 cm (5' 4 ) 03/27/2019 3:22 PM CLINICAL TRIALS MANAGER Body Mass Index 48.97 03/27/2019 3:22 PM CLINICAL TRIALS MANAGER Plan of Treatment Not on file Procedures Procedure Name Priority Date/Time Associated Diagnosis [...] age 40, based on guidelines of the [employer] (ACR Practice Parameter for the Performance of Screening and Diagnostic Mammography) and [employer]. For women [...] There has been no suspicious change. Panda Hebrert MD IMG MAMMO PROCEDURES Final R esult from Last 3 Months or Most Recently Relevant to Health Maintenance Insurance [facility] MEDICAID [facility] Care Teams Advertising Editor Relationship Specialty Start Date End Date Stewart Diggs MD [facility] [address] [place] [address] PCP - General 03/27/19
--- OUTSIDE RECORDS SUMMARY | 2024-04-03 11:37 | XMS_ITS | Patient Health Summary ---
Author Organization [facility] Address [address] [place] [address] Care Team Providers Care Product Management Intern Name Role Phone Stewart Diggs MD Primary Care Provider [phone] Note from [facility],non-owned Affiliates and Associated Physician Practices is amultiple site organization consisting of ambulatory clinics and hospital sitesin [place], [place], [place] and [place]. This disclosure is being madepursuant to the Care Everywhere program and may not contain all information available regarding this patient. Last updated 17.[facility] Allergies * Bee(Swelling) -Low Criticality Medications * Be aware that medications may not be up to date on this document. Alwaysverify current medications with the patient. * amLODIPine (NORVASC) 5 MG tablet amlodipine 5 mg tablet * cyclobenzaprine (FLEXERIL) 10 MG tablet cyclobenzaprine 10 mg tablet * ibuprofen (MOTRIN) 800 MG tablet(Started 12/03/2019) * meloxicam (Mobic) 15 MG tablet(Started 08/13/2022) TAKE 1 TABLET BY MOUTH EVERY DAY WITH MEALS * tretinoin (Retin-A) 0.05 % cream(Started 01/07/2024) Pea sized amount to entire face at night. 30 days supply. 5 refills by 01/06/2025 * spironolactone (Aldactone) 100 MG tablet(Started 01/07/2024) Take 1 (one) tablet by mouth once daily 3 refills by 01/06/2025 * EPINEPHrine (EPIPEN) 0.3 MG/0.3ML auto-injector pen(Started 02/13/2024) Inject 0.3 mL into muscle once as needed for Anaphylaxis * fluticasone propionate (Flonase) 50 MCG/ACT nasal spray(Started 02/13/2024) [place] 1 (one) spray into each nostril 2 times daily 11 refills by 02/12/2025 * loratadine (Claritin) 10 MG tablet(Started 02/13/2024) Take 1 (one) tablet by mouth once daily 11 refills by 02/12/2025 * olopatadine (Patanase) 0.6 % nasal solution(Started 02/13/2024) [place] 2 (two) sprays into each nostril 2 times daily 11 refills by 02/12/2025 * triamcinolone acetonide (Kenalog) 0.1 % ointment(Started 02/13/2024) Apply to affected area 2 times daily as needed (for red itchy flares) Use for 7 days at a time. Do not use for more than half of the days in the month 3 refills by 02/12/2025 * tacrolimus (Protopic) 0.1 % ointment(Started 02/13/2024) Apply to affected area 2 times daily 5 refills by 02/12/2025 Active Problems Problem Noted Date Diagnosed Date [...] Comments Blood Pressure 118/90 02/13/2024 3:15 PM GRAPHIC EDITOR Pulse 99 02/13/2024 3:15 PM GRAPHIC EDITOR Temperature 36.3 C (97.3 F) 02/13/2024 3:15 PM GRAPHIC EDITOR Respiratory Rate 18 02/13/2024 3:15 PM GRAPHIC EDITOR Oxygen Saturation 98% 02/13/2024 3:15 PM GRAPHIC EDITOR Inhaled Oxygen Concentration - - Weight 122.5 kg (270 lb) 02/13/2024 3:15 PM GRAPHIC EDITOR Height 162.6 cm (5' 4 ) 02/13/2024 3:15 PM GRAPHIC EDITOR Body Mass Index 46.35 02/13/2024 3:15 PM GRAPHIC EDITOR Procedures * IMMUNOSCORE IGE INTERP(Performed 01/01/2020) Performed for Nonallergic vasomotor rhinitis * ALLERGEN HYMENOPTERA VENOM(Performed 01/01/2020) Performed for History of insect sting allergy * ALLERGEN RESPIRATORY PNL REGION 8 ([place])(Performed 01/01/2020) Performed for Nonallergic vasomotor rhinitis * PATHOLOGY/GENETICS HISTORICAL-ONBASE(Performed 10/03/2016) * LAB HISTORICAL RESULTS-ONBASE(Performed 10/03/2016) * LAB HISTORICAL RESULTS-ONBASE(Performed 10/03/2016) * CYTOLOGY NON-NURSE CONSULTANT PANEL (STL)(Performed 07/19/2016) * CYTOLOGY NON-NURSE CONSULTANT PANEL (STL)(Performed 07/19/2016) * CT FACIAL BONES WO CONTRAST(Performed 06/19/2016) * GROSS + MICRO EXAM(Performed 03/24/2001) Results * (ABNORMAL) ALLERGEN HYMENOPTERA VENOM (01/01/2020 11:43 AM GRAPHIC EDITOR) Allergen Honeybee <0.10 Class 0 kU/L 01/06/2020 12:09 PM GRAPHIC EDITOR [facility] ([facility]) Class Description Blood Comment 01/06/2020 12:09 PM GRAPHIC EDITOR [facility] ([facility]) Comment: Levels of Specific IgE Class Description of Class ----- < 0.10 0 Negative 0.10 - 0.31 0/I Equivocal/Low 0.32 - 0.55 I Low 0.56 - 1.40 II Moderate 1.41 - 3.90 III High 3.91 - 19.00 IV Very High 19.01 - 100.00 V Very High >100.00 Very High Allergen White Hornet <0.10 Class 0 kU/L 01/06/2020 12:09 PM GRAPHIC EDITOR [facility] ([facility]) Allergen Yellow Jacket 0.20(A) Class 0/I kU/L 01/06/2020 12:09 PM GRAPHIC EDITOR [facility] ([facility]) Allergen Paper Wasp 0.10(A) Class 0/I kU/L 01/06/2020 12:09 PM GRAPHIC EDITOR [facility] ([facility]) Allergen Yellow Hornet <0.10 Class 0 kU/L 01/06/2020 12:09 PM GRAPHIC EDITOR [facility] ([facility]) Blood BLOOD SPECIMEN / Unknown Lab Venipuncture / Unknown 01/01/2020 11:43 AM GRAPHIC EDITOR 01/01/2020 2:17 PM GRAPHIC EDITOR Narrative [facility] ([facility]) - 01/06/2020 12:09 PM GRAPHIC EDITOR Performed at: [address] [place] [id number] Center Mgr: Lindsey Edgar MD, Phone: [phone] Nabil Saha MD LAB - SEROLOGY ORDER [facility]) [address] [place] [address] * IMMUNOSCORE IGE INTERP (01/01/2020 11:43 AM GRAPHIC EDITOR) Immunocap Score See Note 0 12:36 PM GRAPHIC EDITOR [facility] ([facility]) Comment: REFERENCE INTERVAL: Allergen, Interpretation Less than 0.10 kU/L......Class 0.....No significant level detected 0.10-0.34 kU/L...........Class 0/1...Clinical relevance undetermined 0.35-0.70 kU/L...........Class 1.....Low 0.71-3.50 kU/L...........Class 2.....Moderate 3.51-17.50 kU/L..........Class 3.....High 17.51-50.00 kU/L.........Class 4.....Very High 50.01-100.00 kU/L........Class 5.....Very High Greater than 100.00kU/L..Class 6.....Very High Allergen results of 0.10-0.34 kU/L are intended for specialist use as the clinical relevance is undetermined. Even though increasing ranges are reflective of increasing concentrations of allergen-specific IgE, these concentrations may not correlate with the degree of clinical response or skin testing results when challenged with a specific allergen. The correlation of allergy laboratory results with clinical history and in vivo reactivity to specific allergens is essential. A negative test may not rule out clinical allergy or even anaphylaxis. Performed By: [employer] [address] [place] [address] Customer Success Advocate: Bev Mott MD Blood BLOOD SPECIMEN / Unknown Lab Venipuncture / Unknown 01/01/2020 11:43 AM GRAPHIC EDITOR 01/01/2020 12:12 PM GRAPHIC EDITOR Nabil Saha MD LAB - SEROLOGY ORDER [facility]) [address] [place] [address], [facility] * ALLERGEN RESPIRATORY PROF ([place]) IGE (01/01/2020 11:43 AM GRAPHIC EDITOR) Allergen Garcia Elder <0.10 <=0.34 kU/L 01/06/2020 12:33 PM GRAPHIC EDITOR [facility] ([facility]) IgE Total 147 <=214 kU/L 01/06/2020 12:33 PM GRAPHIC EDITOR [facility] ([facility]) Comment: REFERENCE INTERVAL: Immunoglobulin E, Serum Access complete set of age- and/or gender-specific reference intervals for this test in the [facility] Test Directory ([facility]). Allergen Alternaria alternata <0.10 <=0.34 kU/L 01/06/2020 12:33 PM GRAPHIC EDITOR [facility] ([facility]) Allergen Hampton Maple <0.10 <=0.34 kU/L 01/06/2020 12:33 PM GRAPHIC EDITOR [facility] ([facility]) Allergen Cat Dander <0.10 <=0.34 kU/L 01/06/2020 12:33 PM GRAPHIC EDITOR [facility] ([facility]) Allergen [place] <0.10 <=0.34 kU/L 01/06/2020 12:33 PM GRAPHIC EDITOR [facility] ([facility]) Allergen Mcleod Tree <0.10 <=0.34 kU/L 01/06/2020 12:33 PM GRAPHIC EDITOR [facility] ([facility]) Allergen Rough Pigweed <0.10 <=0.34 kU/L 01/06/2020 12:33 PM GRAPHIC EDITOR [facility] ([facility]) Allergen Bruneian Thistle <0.10 <=0.34 kU/L 01/06/2020 12:33 PM GRAPHIC EDITOR [facility] ([facility]) Allergen Pedro Grass <0.10 <=0.34 kU/L 01/06/2020 12:33 PM GRAPHIC EDITOR [facility] ([facility]) Allergen Hormodendrum <0.10 <=0.34 kU/L 01/06/2020 12:33 PM GRAPHIC EDITOR [facility] ([facility]) Allergen Elm <0.10 <=0.34 kU/L 01/06/2020 12:33 PM GRAPHIC EDITOR [facility] ([facility]) Allergen [place] <0.10 <=0.34 kU/L 01/06/2020 12:33 PM GRAPHIC EDITOR [facility] ([facility]) Allergen A fumigatus IgE <0.10 <=0.34 kU/L 01/06/2020 12:33 PM GRAPHIC EDITOR [facility] ([facility]) Allergen Dermatophagoides pteronyssinus <0.10 <=0.34 kU/L 01/06/2020 12:33 PM GRAPHIC EDITOR [facility] ([facility]) Allergen Dermatophagoides farinae 0.10 <=0.34 kU/L 01/06/2020 12:33 PM GRAPHIC EDITOR [facility] ([facility]) Allergen Bermuda Grass <0.10 <=0.34 kU/L 01/06/2020 12:33 PM GRAPHIC EDITOR [facility] ([facility]) Allergen White Geoff <0.10 <=0.34 kU/L 01/06/2020 12:33 PM GRAPHIC EDITOR [facility] ([facility]) Allergen P. Notatum <0.10 <=0.34 kU/L 01/06/2020 12:33 PM GRAPHIC EDITOR [facility] ([facility]) Allergen Common Ragweed <0.10 <=0.34 kU/L 01/06/2020 12:33 PM GRAPHIC EDITOR [facility] ([facility]) Allergen Cockroach Chinese <0.10 <=0.34 kU/L 01/06/2020 12:33 PM GRAPHIC EDITOR [facility] ([facility]) Allergen Burton Tree <0.10 <=0.34 kU/L 01/06/2020 12:33 PM GRAPHIC EDITOR [facility] ([facility]) Allergen Fl[place] Tree <0.10 <=0.34 kU/L 01/06/2020 12:33 PM GRAPHIC EDITOR [facility] ([facility]) Allergen Pecan Tree <0.10 <=0.34 kU/L 01/06/2020 12:33 PM GRAPHIC EDITOR [facility] ([facility]) Allergen Mouse <0.10 <=0.34 kU/L 01/06/2020 12:33 PM GRAPHIC EDITOR [facility] ([facility]) Allergen Mucor racemosus <0.10 <=0.34 kU/L 01/06/2020 12:33 PM GRAPHIC EDITOR [facility] ([facility]) Allergen White [place] Tree IgE <0.10 <=0.34 kU/L 01/06/2020 12:33 PM GRAPHIC EDITOR [facility] ([facility]) Allergen Dog Dander <0.10 <=0.34 kU/L 01/06/2020 12:33 PM GRAPHIC EDITOR [facility] ([facility]) Comment: Performed By: [facility] [employer] [address] [place] [address] Customer Success Advocate: Bev Mott MD Blood BLOOD SPECIMEN / Unknown Lab Venipuncture / Unknown 01/01/2020 11:43 AM GRAPHIC EDITOR 01/01/2020 12:12 PM GRAPHIC EDITOR Nabil Saha MD LAB - CHEMISTRY [facility] ([facility]) [address] * PATHOLOGY/GENETICS HISTORICAL-ONBASE (10/03/2016) 10/03/2016 Historical Provider LAB - CHEMISTRY O RDERABLES Performing Organization Address [facility] Co de Phone Number [facility] [address] * LAB HISTORICAL RESULTS-ONBASE (10/03/2016) Only the most recent of2 resultswithin the time period is included. 10/03/2016 Historical Provider LAB - CHEMISTRY O RDERAPRAVEEN Performing Organization Address [facility] Co de Phone Number [facility] [address] * CYTOLOGY NON-NURSE CONSULTANT PANEL (STL) (07/19/2016 12:00 AM CDT) Only the most recent of2 resultswithin the time period is included. Cytology Non-Security Management Specialist Accession No: [id number] Reference: Specimen: LEFT MAXILLA Clinical History: None Given Gross Description: 2 FIXED AND 2 UNFIXED SLIDES, 10 CC RPMI FLUID Preparation Method: 2 PAP STAINED AND 2 DIFF Q. STAINED SMEARS, 1 CELL BLOCK SPECIMEN ADEQUACY: ADEQUATE FINAL DIAGNOSIS: MAXILLA, LEFT, FNA -NO EVIDENCE OF MALIGNANCY -SPARSE ACUTE AND CHRONIC INFLAMMATION MICROSCOPIC DESCRIPTION: Review of 2 pap and 2 diff-quik stained slides reveal few benign epithelial cells within a background of cyst fluid and inflammation. Histiocytes and neutrophils are seen. The cell block reveals blood and fibrin. PRELIMINARY DIAGNOSIS: Immediate interpretation by: Dr. Tricia Mendes CYST BETWEEN 1ST AND 2ND LEFT INCISOR, FNA Episode 1 Pass 1- Rare mononuclear cells Pass 2- Rare mononuclear cells (10:40am) COMMENT(S): This case has been personally reviewed and interpreted by the attending (teaching) pathologist. Initial Evaluation performed by David ROY([facility]). Electronically signed 07/24/2016 Final Diagnosis performed by David Mendes MD. Electronically signed 07/24/2016 [facility] PATHOLOGY LAB ([facility]) 07/19/2016 07/20/2016 11: 40 AM CDT Johny Aquino MD LAB - PATHOLOGY/CY TOLOGY ORDERABLES Performing Organization Address [facility] Co de Phone Number [facility] PATHOLOGY LAB ([place]) * CT FACIAL BONES WO CONTRAST (06/19/2016 2:24 PM CDT) Anatomical Region Laterality Modality Head Other Impressions 06/19/2016 4:44 PM CDT IMPRESSION: 1. Lytic expansile lucency at the root of the left maxillary central and lateral incisors with associated osseous erosion through the hard palate into the anterior nasal cavity. This is nonspecific and differential considerations include nasopalatine duct cyst, periapical cyst/abscess (although no significant dental caries are noted in this region), odontogenic keratocyst, and ameloblastoma. Other lesions which may cause erosions such as squamous cell carcinoma cannot be entirely excluded on this study and correlation with dental examination is recommended. 2. An additional lucency at the roots of the right mandibular canine and first premolar caries a similar differential with the exception of nasal palatine duct cyst, although is smaller in size. 3. Minimal paranasal sinus disease. This report was approved by Michael Goldberg M.D. on 06/19/2016 3:09 PM . I, Dr. DELMAR BROWN M.D. have personally reviewed and interpreted this examination/study. This report was electronically signed by DELMAR BROWN M.D. on 06/19/2016 4:44 PM . Narrative 06/19/2016 4:44 PM CDT EXAMINATION: Computed tomography (CT) of the maxillofacial bones, orbits, and paranasal sinuses without contrast HISTORY: Chronic and recurrent sinusitis TECHNIQUE: CT of the maxillofacial bones, orbits, and paranasal sinuses was performed without contrast according to standard protocol. FINDINGS: No prior study is available for comparison at the time of this dictation. The orbits appear normal. There is minimal paranasal sinus disease. There is an expansile lytic lesion with osseous erosion of the maxilla at the roots of the left maxillary central and lateral incisors. This lucency measures approximately 1.5 cm AP by 1.6 cm TV (series 3 image 93) and appears to erode through the hard palate and communicate with the left nasal cavity. An additional lucency is identified in the mandible at the roots of the right mandibular canine and first premolar which appears to extend through the anterior wall of the right mandible. The temporomandibular joints appear normal. No acute facial bone fractures are identified. The mastoid air cells are clear. Procedure Note Delmar Brown MD - 03/30/2018 EXAMINATION: Computed tomography (CT) of the maxillofacial bones, orbits,and paranasal sinuses without contrast HISTORY: Chronic and recurrent sinusitis TECHNIQUE: CT of the maxillofacial bones, orbits, and paranasal sinuseswas performed without contrast according to standard protocol. FINDINGS: No prior study is available for comparison at the time of thisdictation. The orbits appear normal. There is minimal paranasal sinus disease. Thereis an expansile lytic lesion with osseous erosion of the maxilla at theroots of the left maxillary central and lateral incisors. This lucencymeasures approximately 1.5 cm AP by 1.6 cm TV (series 3 image 93) and appears to erode through the hard palateand communicate with the left nasal cavity. An additional lucency isidentified in the mandible at the roots of the right mandibular canine andfirst premolar which appears to extend through the anterior wall of the right mandible. Thetemporomandibular joints appear normal. No acute facial bone fractures areidentified. The mastoid air cells are clear. IMPRESSION IMPRESSION: 1. Lytic expansile lucency at the root of the left maxillary central andlateral incisors with associated osseous erosion through the hard palateinto the anterior nasal cavity. This is nonspecific and differentialconsiderations include nasopalatine duct cyst, periapical cyst/abscess (although no significant dental cariesare noted in this region), odontogenic keratocyst, and ameloblastoma.Other lesions which may cause erosions such as squamous cell carcinomacannot be entirely excluded on this study and correlation with dental examination is recommended. 2. An additional lucency at the roots of the right mandibular canine andfirst premolar caries a similar differential with the exception of nasalpalatine duct cyst, although is smaller in size. 3. Minimal paranasal sinus disease. This report was approved by Michael Goldberg M.D. on 06/19/2016 3:09 PM. I, Dr. DELMAR BROWN M.D. have personally reviewed and interpreted thisexamination/study. This report was electronically signed by DELMAR BROWN M.D. on 06/19/20164:44 PM . Johny Aquino MD CT ORDERABLES * GROSS + MICRO EXAM (03/24/2001 8:21 AM GRAPHIC EDITOR) Result CASE NUMBER [id number] Comment: ORDERING PHYSICIAN SASHA CEBALLOS SPECIMEN TYPE Placenta Date 03/25/2001 Physician Dereje Gross Description The specimen is received in a single formalin-filled container labeled with the patient's name and identified as placenta . The specimen consists of two separately received discs of placenta. One disc with umbilical cord attached has one clamp designated as placenta A the second disc with two clamps attached to the umbilical cord is designated as placenta B. The placental disc of A measures 13 x 11 x 0.8 cm. and weighs 280 grams. The umbilical cord is eccentrically inserted into the placental disc and measures 6 x 1.2 cm. The membranes are not marginally attached to the placental disc. The chorionic disc measures 8 x 9.5 cm. The membranes are semi-translucent, grayish in color. The surface is grossly unremarkable. The maternal surface is complete with well-defined cotyledon structure. On sectioning, the parenchyma is spongy, reddish in color without areas suspicious for infarct. Credit Relationship Manager sections are submitted as follow cassette A, umbilical cord and membranes cassette B, surface of placenta cassette C, maternal surface of placenta. The second disc designated as B measures 12 x 13 x 2 cm. and weighs 240 grams. The umbilical cord is eccentrically inserted into the placental disc. It measures 5 x 1.2 cm. in diameter and grossly has 3 blood vessels. The membranes are marginally attached to the placental disc. They are semi-translucent, grayish in color. The portion of the placental disc is grossly unremarkable. The maternal portion of the placenta is complete. The parenchyma is spongy, reddish in color without areas suspicious for infarct. Credit Relationship Manager sections are submitted as follows cassette D, umbilical cord and membranes cassette E, portion of placenta cassette F, maternal portion of placenta. TK/bk Microscopic Exam Sections labeled A, B and C are taken from placenta A. Sections labeled A reveal fragments of both umbilical cord and chorioamniotic membranes. The umbilical cord shows three vessels showing no evidence of inflammation or thrombosis. The chorioamniotic membranes show no evidence of significant inflammation. Sections labeled B and C are taken from the placental disc and demonstrate villi that are immature with relatively few syncytial knots. However, evidence of infarction is not seen. The chorionic plate shows no significant inflammatory change. Sections labeled D, E and F are taken from placenta B and also focally demonstrate cross sections of umbilical cord exhibiting three vascular channels, none showing any evidence of inflammation. The accompanying chorioamniotic membranes are free of inflammation. Sections labeled E and F are taken from the chorionic plate and demonstrate immature villi with scattered syncytial knots. No evidence of infarctional change is seen. The chorionic plate shows no evidence of significant inflammation. Diagnosis I. Diamniotic dichorionic twin (separate) placentae A. Placenta A 1. Three vessel umbilical cord. 2. No evidence of infarction or inflammation. B. Placenta B 1. Normal three vessel umbilical cord 2. No evidence of inflammation or infarction. Traffic Control Officer bk Pathologist Israel David M.D. [place]. 03/25/2001 1527 <1> CPT code 94580 x2 MISCELLANEOUS SAMPLES / Unknown 03/24/2001 8:21 AM GRAPHIC EDITOR 03/24/2001 8:21 AM GRAPHIC EDITOR Historical Provider LAB - PATHOLOGY/C YTOLOGY ORDERABLES Care Teams Product Management Intern Relationship Specialty [place] [address] [place] [phone] PCP - General Gastroenterology 01/30/23
[2024-04-03 11:52] LABS: Creatinine Urine 197.7 mg/dL
[2024-04-03 12:07] LABS: Total Protein Urine Random < 5 mg/dL; Ur Ttl Prot Creatinine Ratio < 0.03 mg/mg (0-0.20)
== END 2024-04-03 10:57 | disposition home or self-care (01) ==
LOC: ANHLAB 10:58
PROVIDERS: PCP Internal Medicine Gastroenterology; Visit Provider Internal Medicine Nephrology
DX: R80.9 Proteinuria, unspecified (principal); I10 Essential (primary) hypertension
CPT/HCPCS: 36415; 80069; 82570; 84156